=== PATIENT | female | born 1945 | race Asian ===

== ENCOUNTER 2024-10-08 05:57 | Inpatient (IN) | payer OTHER, MEDICAID ==
[~2024-10-08] VITALS: Ht 152.4 cm; Wt 49.7 kg
[2024-10-08] VITALS (7 sets, daily range): BP systolic 96–100; BP diastolic 51–56; TEMP 97.5–98.1; O2SAT 95–99
[2024-10-08] MEDS ORDERED: IPRATROPIUM NEB FS 0.5 MG/2.5 ML AMPUL.NEB ONE (06:10)
[2024-10-08] MEDS ORDERED: ALBUTEROL FS 2.5 MG/3 ML VIAL.NEB ONE (06:10)
[2024-10-08] MEDS: ALBUTEROL FS 2.5 MG/3 ML VIAL.NEB NEB ONE (06:34)
[2024-10-08] MEDS ORDERED: dexaMETHasone SOD PHOSPHATE 1 ML ONE (06:37)
[2024-10-08 06:44] LABS: ABG BASE EXCESS -5.4 mmol/L (-2.0-3.0); ABG OXYGEN SATURATION 97.9 % (94.0-98.0); ABG PH 7.296 (7.350-7.450); ABG PO2 122.9 mmHg (83.0-108.0); ABG TOTAL HEMOGLOBIN 14.8 G/dL (12.0-16.0); COHb 0.1 % (0.5-1.5); MetHb 0.3 % (0.0-1.5); O2Hb 97.5 % (94.0-97.0); SITE, ABG RIGHT RADIAL
[2024-10-08 06:50] LABS: BASOPHILS % (AUTO) 0.4 % (0.0-2.0); EOSINOPHILS # (AUTO) 0.4 K/uL (0.0-0.7); EOSINOPHILS % (AUTO) 6.4 % (0.0-6.0); HEMATOCRIT 44 % (33-45); HEMOGLOBIN 14.3 g/dL (11.5-14.8); LYMPHOCYTES # (AUTO) 2.3 K/uL (0.8-4.8); LYMPHOCYTES % (AUTO) 34.4 % (20.0-44.0); MEAN CORPUSCULAR HEMOGLOBIN 32 PG (26.0-33.0); MEAN CORPUSCULAR HGB CONC 33 g/dl (31.0-36.0); MEAN CORPUSCULAR VOLUME 98 fL (82-100); MONOCYTES # (AUTO) 0.5 K/uL (0.1-1.30); MONOCYTES % (AUTO) 8.1 % (2.0-12.0); NEUTROPHILS # (AUTO) 3.4 K/uL (1.8-8.9); NEUTROPHILS % (AUTO) 50.7 % (43.0-81.0); PLATELET COUNT (AUTO) 217 K/uL (150-450); RED BLOOD CELL COUNT(AUTO) 4.47 MIL/uL (4.0-5.2); RED CELL DISTRIBUTION WIDTH 15.2 % (11.5-15.0); WHITE BLOOD COUNT (AUTO) 6.8 K/uL (4.3-11.0)
[2024-10-08] MEDS: dexaMETHasone SOD PHOSPHATE 10 MG/ML VIAL IV ONE (06:53)
[2024-10-08 07:00] LABS: CALCIUM, SERUM 8.9 mg/dL (8.5-10.1); CARBON DIOXIDE 25 mmol/L (21-32); CHLORIDE 105 mmol/L (98-107); CREATININE 0.7 mg/dL (0.6-1.3); GLUCOSE 176 mg/dL (74-106); POTASSIUM 4.1 mmol/L (3.5-5.1); SODIUM SERUM 140 mmol/L (136-145); UREA NITROGEN, BLOOD 13 mg/dL (7-18)
[2024-10-08 07:05] LABS: ALANINE AMINOTRANSFERASE 33 U/L (12-78); ALBUMIN 3.6 g/dL (3.4-5.0); ALKALINE PHOSPHATASE 66 U/L (46-116); ASPARTATE AMINOTRANSFERASE 31 U/L (15-37); BILIRUBIN,DIRECT 0.1 mg/dL (0.0-0.2); BILIRUBIN,TOTAL 0.5 mg/dL (0.2-1.0); TOTAL PROTEIN, SERUM 7.1 g/dL (6.4-8.2)
[2024-10-08 07:10] LABS: LACTIC ACID 2.1 mmol/L (0.4-2.0)
[2024-10-08] MEDS: AZITHROMYCIN 500 MG in IV D5W 250 ML IV ONE (07:30)
[2024-10-08 07:37] LABS: INR 0.96 (0.91-1.10); PARTIAL THROMBOPLASTIN TIME 23.9 SEC (24.3-34.3); PROTHROMBIN TIME 10.2 SECS (9.2-11.1)
[2024-10-08 07:46] LABS: APPEARANCE,URINE CLEAR (CLEAR); BILIRUBIN,URINE NEGATIVE (NEGATIVE); BLOOD, URINE NEGATIVE Ery/uL (NEGATIVE); COLOR,URINE YELLOW (YELLOW); KETONES,URINE NEGATIVE (NEGATIVE); LEUKOCYTE ESTERASE ,URINE TRACE (NEGATIVE); NITRITE, URINE NEGATIVE (NEGATIVE); PH,URINE 6.5 (5.0-8.0); PROTEIN,URINE 1+ mg/dl (NEGATIVE); UGLUCOSE NEGATIVE (NEGATIVE); UROBILINOGEN,URINE 0.2 EU/dL (0.2)
[2024-10-08] MEDS ORDERED: CEFTRIAXONE 1GM BAG (ER ONLY) 50 ML IV ONE (07:56)
[2024-10-08 08:01] LABS: ADD URINE CULTURE NO; BACTERIA,URINE Rare /HPF (None Seen); RBC,URINE 0-2 /HPF (0-2); SQUAMOUS EPITHELIAL CELL,UR 0-2 /HPF (None Seen); WBC,URINE 0-2 /HPF (0-3)
[2024-10-08] MEDS: IV NS 0.9% 1,000 ML BAG IV ONE (08:16)
[2024-10-08] MEDS: CEFTRIAXONE 1GM BAG (ER ONLY) 50 ML IV ONE (08:17)
[2024-10-08] MEDS: GUAIFENESIN LA 600 MG TABLET.SA PO SCH (10:57)
[2024-10-08] MEDS: methylPREDNISolone SOD SUCC 125 MG/2ML VIAL IV SCH (10:59)
[2024-10-08] MEDS ORDERED: MAG HYDROX/AL HYDROX/SIMETH 30 ML UDC PO PRN (11:00)
[2024-10-08] MEDS ORDERED: MAGNESIUM HYDROXIDE 30 ML UDC PO PRN (11:00)
[2024-10-08] MEDS: ENOXAPARIN SODIUM 40 MG/0.4 ML DISP.SYRIN SQ SCH (11:16)
[2024-10-08] MEDS: ACETAMINOPHEN 325 MG TABLET PO PRN (17:15)
[2024-10-08] MEDS: ALBUTEROL HALF STRENGTH 1.25 MG/3 ML VIAL.NEB NEB SCH (19:14)
[2024-10-08] MEDS: IPRATROPIUM NEB FS 0.5 MG/2.5 ML AMPUL.NEB NEB SCH (19:14)
[2024-10-08] MEDS ORDERED: MONT10TA22 PO (20:31)
[2024-10-08] MEDS ORDERED: FAMO40TA7 PO (20:31)
[2024-10-08] MEDS ORDERED: ROSU20TA2 PO (20:31)
[2024-10-08] MEDS ORDERED: LOSA25TA27 PO (20:31)
[2024-10-09] VITALS (12 sets, daily range): BP systolic 96–107; BP diastolic 50–60; TEMP 97.5–97.9; O2SAT 96–100
[2024-10-09 07:39] LABS: BASOPHILS % (AUTO) 0.2 % (0.0-2.0); HEMATOCRIT 41 % (33-45); HEMOGLOBIN 13.6 g/dL (11.5-14.8); LYMPHOCYTES # (AUTO) 1.6 K/uL (0.8-4.8); LYMPHOCYTES % (AUTO) 17.8 % (20.0-44.0); MEAN CORPUSCULAR HEMOGLOBIN 32 PG (26.0-33.0); MEAN CORPUSCULAR HGB CONC 33 g/dl (31.0-36.0); MEAN CORPUSCULAR VOLUME 97 fL (82-100); MONOCYTES # (AUTO) 1.2 K/uL (0.1-1.30); MONOCYTES % (AUTO) 13.3 % (2.0-12.0); NEUTROPHILS # (AUTO) 6.3 K/uL (1.8-8.9); NEUTROPHILS % (AUTO) 68.7 % (43.0-81.0); PLATELET COUNT (AUTO) 219 K/uL (150-450); RED BLOOD CELL COUNT(AUTO) 4.27 MIL/uL (4.0-5.2); RED CELL DISTRIBUTION WIDTH 14.7 % (11.5-15.0); WHITE BLOOD COUNT (AUTO) 9.2 K/uL (4.3-11.0)
[2024-10-09 07:47] LABS: POTASSIUM 4.2 mmol/L (3.5-5.1)
[2024-10-09 08:09] LABS: CREATININE 0.8 mg/dL (0.6-1.3); MAGNESIUM 2.4 mg/dL (1.8-2.4); PHOSPHORUS 3.6 mg/dL (2.5-4.9)
[2024-10-09] MEDS: PANTOPRAZOLE 40 MG TABLET.DR PO SCH (08:23)
[2024-10-09] MEDS: CEFTRIAXONE 1 G in IV D5W 50 ML IV SCH (08:23)
[2024-10-09] MEDS: ONDANSETRON HCL/PF 4 MG/2 ML VIAL IVP PRN (08:44)
[2024-10-09] MEDS: AZITHROMYCIN 500 MG in IV D5W 250 ML IV SCH (09:26)
[2024-10-09] MEDS ORDERED: ALBU6.7H9 IH (12:16)
[2024-10-09] MEDS ORDERED: ASPI-1169 PO (12:16)
[2024-10-09] MEDS ORDERED: BREYNA IH (12:16)
[2024-10-10] VITALS (14 sets, daily range): BP systolic 98–129; BP diastolic 44–66; TEMP 97.7–98; O2SAT 95–100
[2024-10-10 07:02] LABS: BASOPHILS % (AUTO) 0.3 % (0.0-2.0); HEMATOCRIT 39 % (33-45); HEMOGLOBIN 12.9 g/dL (11.5-14.8); LYMPHOCYTES # (AUTO) 1.4 K/uL (0.8-4.8); LYMPHOCYTES % (AUTO) 16.7 % (20.0-44.0); MEAN CORPUSCULAR HEMOGLOBIN 32 PG (26.0-33.0); MEAN CORPUSCULAR HGB CONC 33 g/dl (31.0-36.0); MEAN CORPUSCULAR VOLUME 96 fL (82-100); MONOCYTES # (AUTO) 0.6 K/uL (0.1-1.30); MONOCYTES % (AUTO) 7.1 % (2.0-12.0); NEUTROPHILS # (AUTO) 6.3 K/uL (1.8-8.9); NEUTROPHILS % (AUTO) 75.9 % (43.0-81.0); PLATELET COUNT (AUTO) 192 K/uL (150-450); RED BLOOD CELL COUNT(AUTO) 4.02 MIL/uL (4.0-5.2); RED CELL DISTRIBUTION WIDTH 14.8 % (11.5-15.0); WHITE BLOOD COUNT (AUTO) 8.4 K/uL (4.3-11.0)
[2024-10-10 07:13] LABS: CALCIUM, SERUM 9.1 mg/dL (8.5-10.1); CREATININE 0.6 mg/dL (0.6-1.3); MAGNESIUM 2.4 mg/dL (1.8-2.4); PHOSPHORUS 3.8 mg/dL (2.5-4.9); POTASSIUM 4.8 mmol/L (3.5-5.1)
[2024-10-10] MEDS ORDERED: IPRA0.2S49 NEB (11:03)
[2024-10-10] MEDS ORDERED: METH4TAB17 PO (11:03)
[2024-10-10] MEDS ORDERED: ALBU1.25 NEB (11:03)
[2024-10-10] MEDS ORDERED: GUAI600T53 PO (11:03)
[2024-10-10] MEDS ORDERED: ALBU2.5V38 NEB (11:03)
[2024-10-10] MEDS ORDERED: LEVO500T90 PO (11:03)
[2024-10-10] MEDS ORDERED: IPRA0.2S9 NEB (11:03)
[2024-10-11] VITALS (9 sets, daily range): BP systolic 129–147; BP diastolic 64–77; TEMP 97.7–97.9; O2SAT 96–100
[2024-10-11] MEDS: ASPIRIN EC 81 MG TABLET.DR PO SCH (09:41)
[2024-10-11] MEDS: LOSARTAN POTASSIUM 25 MG TABLET PO SCH (09:42)
[2024-10-11] MEDS ORDERED: ATORVASTATIN 40 MG TABLET PO SCH (22:00)
== END 2024-10-11 15:02 | disposition home health service (06) | DRG 193 ==
LOC: ER 06:03 → TELE-TD 09:00 → TELE1 09:04 → MEDSG1 10-10 09:38
PROVIDERS: ADMIT Nurse Practitioner Family; ATTEND Internal Medicine
DX: J18.9 Pneumonia, unspecified organism (principal); J96.01 Acute respiratory failure with hypoxia; J45.901 Unspecified asthma with (acute) exacerbation; J44.0 Chronic obstructive pulmonary disease with (acute) lower respiratory infection; E87.20 Acidosis, unspecified; J44.1 Chronic obstructive pulmonary disease with (acute) exacerbation; J20.9 Acute bronchitis, unspecified; J43.9 Emphysema, unspecified; I25.10 Atherosclerotic heart disease of native coronary artery without angina pectoris; Z79.51 Long term (current) use of inhaled steroids; F17.200 Nicotine dependence, unspecified, uncomplicated; Z95.5 Presence of coronary angioplasty implant and graft; Z79.899 Other long term (current) drug therapy; I10 Essential (primary) hypertension; I25.2 Old myocardial infarction; Z86.73 Personal history of transient ischemic attack (TIA), and cerebral infarction without residual deficits; Z71.6 Tobacco abuse counseling
CPT/HCPCS: 36415; 70220-TC; 71045-TC; 71250-TC; 80048-TC; 80076-TC; 81001; 83605-TC; 83735-TC; 84100-TC; 85025-TC; 85730-TC; 87040-TC; 87086-TC; 94760-TC; 94799-TC; 97110-TC; 97112-TC; 97116-TC; 97530-TC; A4223; G0378; J0456; J0696; J1100; J1650; J2405; J2919; J7030; J7050; J7060